=== PATIENT | female | born 1965 | race Caucasian/White ===

== ENCOUNTER → 2017-08-16 | Outpatient (CLI) | payer OTHER ==
[~2017-08-16] MED LIST: AFRIN,GENASAL D15 ML BOTH NARES; ANTIVERT25 MG PO; ASPIR-LOW81 MG PO; ATORVASTATIN CA40 MG PO; HYDROCHLOROTHIA25 MG PO; LISINOPRIL-HCT1 EAC3 PO; LISINOPRIL2.5 MG PO; LISINOPRIL40 MG PO; LOPRESSOR25 MG PO; NITROSTAT0.4 MG SL; NORVASC5 MG PO; PAXIL20 MG PO; PRAVASTATIN SOD20 MG PO; PRILOSEC20 MG PO; PRILOSEC40 MG PO; PRINIVIL10 MG PO; TYLENOL EXTRA500 MG PO; VENLAFAXINE HC150 M1 PO; VENLAFAXINE HCL75 M3 PO; ZOLOFT50 MG PO
== END | disposition home or self-care (01) ==
LOC: CDC 12:39
DX: Z01.810 Encounter for preprocedural cardiovascular examination (principal); M25.512 Pain in left shoulder; M75.42 Impingement syndrome of left shoulder; S43.422D Sprain of left rotator cuff capsule, subsequent encounter; R94.31 Abnormal electrocardiogram [ECG] [EKG]
CPT/HCPCS: 93000